=== PATIENT | male | born 1985 | race Caucasian/White ===

== ENCOUNTER 2017-11-24 23:26 | Emergency (ER) | payer MEDICARE, MEDICAID ==
[2017-11-25] LABS: #Basophils 0.1 thou/uL (0.0-0.2); #Eosinphils 0.1 thou/uL (0.0-0.7); #Lymphocytes 3.9 thou/uL (1.20-3.40); #Monocytes 0.7 thou/uL (0.11-0.59); %Basophils 0.8 % (0.0-1.0); %Eosinophils 1.1 % (0.0-10.0); %Lymphocytes 44.4 % (21.0-51.0); %Monocytes 8.2 % (0.0-10.0); %Neutrophils 45.5 % (42.0-75.0); Hemoglobin 16.8 g/dL (14.0-18.0); Mean Corpuscular Hemoglobin 34.2 pg (27.0-31.0); Mean Corpuscular Volume 97.7 fl (80.0-94.0); Mean Platelet Volume 7.4 fL (7.4-10.4); Platelet Count 205 thou/uL (130-400); RBC Distribution Width 11.5 % (11.5-14.5); Red Blood Cell (RBC) Count 4.91 mill/uL (4.70-6.10); White Blood Cell (WBC) Count 8.8 thou/uL (4.8-10.8)
[2017-11-25 00:06] LABS: Amphetamine Not Detected (NotDetected); Barbiturates Screen Not Detected (NotDetected); Benzodiazepine Screen Not Detected (NotDetected); Cocaine Metabolite Screen Not Detected (NotDetected); Medtox Control Line Valid? VALID (VALID); Medtox Reader # READER 4; Methadone Not Detected (NotDetected); Methamphetamine Not Detected (NotDetected); Opiate Screen Not Detected (NotDetected); Oxycodone Screen Not Detected (NotDetected); Phencyclidine (PCP) Not Detected (NotDetected); THC/Cannabinoid Screen Not Detected (NotDetected); Tricyclic Screen Not Detected (NotDetected)
[2017-11-25 00:26] LABS: ALT (SGPT) 12 U/L (8-55); AST (SGOT) 20 U/L (5-34); Acetaminophen Less than 6.0 mcg/mL (10.0-30.0); Albumin 4.9 g/dL (3.5-5.0); Alcohol Less than 10 mg/dL (Less than 10); Alkaline Phosphatase 82 U/L (40-150); Anion Gap 17 mmol/L (10-20); BUN (Urea Nitrogen) 19 mg/dL (8.9-20.6); CK (CPK) 183 U/L (30-200); Calc. Creatinine Clearance 0 mL/min (70-130); Calcium 10.3 mg/dL (7.8-10.44); Carbon Dioxide 25 mmol/L (22-29); Chloride 97 mmol/L (98-107); Estimated GFR-MDRD Greater than 90; Globulin 3.2 g/dL (2.4-3.5); Glucose 92 mg/dL (70-105); Potassium 4.2 mmol/L (3.5-5.1); Protein, Total 8.1 g/dL (6.0-8.3); Salicylate Less than 8.0 mg/dL (15.0-30.0); Sodium 135 mmol/L (136-145)
[2017-11-25 01:00] LABS: Bilirubin Negative (Negative); Blood, Urine Negative (Negative); Clarity CLEAR (Clear); Glucose, Urine (Dipstick) Negative (Negative); Leukocyte Negative (Negative); Nitrite Negative (Negative); Protein, Urine (Dipstick) Negative (Neg-Trace); Specific Gravity, Urine 1.009 (1.002-1.036); Urobilinogen 0.2 mg/dL (0.2-1.0)
[2017-11-25] MEDS ORDERED: Nicotine 14 MG PATCH TOP SCH (07:45)
[2017-11-25] MEDS ORDERED: Haloperidol Lactate 5 MG/ML VIAL ONE ×2 (18:41→19:17)
[2017-11-25] MEDS ORDERED: diphenhydrAMINE 50 MG/ML VIAL ONE (18:41)
[2017-11-25] MEDS ORDERED: Lorazepam 2 MG/ML VIAL ONE (18:41)
== END 2017-11-25 20:17 ==
LOC: ERS 23:26
DX: F30.9 Manic episode, unspecified (principal); F31.9 Bipolar disorder, unspecified; F17.210 Nicotine dependence, cigarettes, uncomplicated
CPT/HCPCS: 80306; 80307; 81003; 82550; 96372; 99285; J2997; 36415; 80053; 84443; 85025; J1200; J1630; J2060

== ENCOUNTER 2017-12-27 21:00 | Emergency (ER) | payer MEDICARE, MEDICAID ==
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
[2017-12-28] MEDS ORDERED: Adacel (T-DAP) 0.5 ML VIAL ONE (00:49)
== END 2017-12-28 01:05 | disposition home or self-care (01) ==
LOC: ERS 21:00
DX: S50.811A Abrasion of right forearm, initial encounter (principal); S70.211A Abrasion, right hip, initial encounter; F31.9 Bipolar disorder, unspecified; F17.210 Nicotine dependence, cigarettes, uncomplicated; Z23 Encounter for immunization; W01.0XXA Fall on same level from slipping, tripping and stumbling without subsequent striking against object, initial encounter; Y93.02 Activity, running; Y92.488 Other paved roadways as the place of occurrence of the external cause
CPT/HCPCS: 90471; 90715

== ENCOUNTER 2018-01-05 04:02 | Emergency (ER) | payer MEDICARE, MEDICAID ==
[2018-01-05 04:53] LABS: #Basophils 0.1 thou/uL (0.0-0.2); #Eosinphils 0.2 thou/uL (0.0-0.7); #Lymphocytes 2.6 thou/uL (1.20-3.40); #Monocytes 0.5 thou/uL (0.11-0.59); #Neutrophils 2.3 thou/uL (1.40-6.50); %Basophils 1.4 % (0.0-1.0); %Eosinophils 3.3 % (0.0-10.0); %Neutrophils 41.4 % (42.0-75.0); Mean Corpuscular HGB CONC 31.9 g/dL (32.0-36.0); Mean Corpuscular Hemoglobin 31.9 pg (27.0-31.0); Mean Corpuscular Volume 99.9 fL (78.0-98.0); Mean Platelet Volume 7.7 fL (7.4-10.4); Platelet Count 189 thou/uL (130-400); RBC Distribution Width 11.6 % (11.5-14.5); White Blood Cell (WBC) Count 5.6 thou/uL (4.8-10.8)
[2018-01-05 05:22] LABS: ALT (SGPT) 15 U/L (8-55); AST (SGOT) 19 U/L (5-34); Albumin 4.1 g/dL (3.5-5.0); Alkaline Phosphatase 57 U/L (40-150); Anion Gap 10 mmol/L (10-20); BUN (Urea Nitrogen) 11 mg/dL (8.9-20.6); Bilirubin, Total 0.4 mg/dL (0.2-1.2); CK (CPK) 172 U/L (30-200); Calc. Creatinine Clearance 0 mL/min (70-130); Calcium 9.4 mg/dL (7.8-10.44); Carbon Dioxide 25 mmol/L (22-29); Chloride 106 mmol/L (98-107); Estimated GFR-MDRD Greater than 90; Globulin 2.8 g/dL (2.4-3.5); Glucose 92 mg/dL (70-105); Protein, Total 6.9 g/dL (6.0-8.3); Sodium 137 mmol/L (136-145)
--- NOTE | 2018-01-08 00:38 | EKG ---
Test Reason : Blood Pressure : / mmHG Vent. Rate : 063 BPM Atrial Rate : 063 BPM P-R Int : 132 ms QRS Dur : 108 ms QT Int : 412 ms P-R-T Axes : -09 082 060 degrees QTc Int : 421 ms Normal sinus rhythm with sinus arrhythmia Incomplete right bundle branch block Borderline ECG Confirmed by ARUNA PAULA ([id number]), content editor CRISTIAN MCBRIDE ([id number]) on 01/08/2018 12:37:42 AM Referred By: Confirmed By:ARUNA PAULA
== END 2018-01-05 05:58 | disposition home or self-care (01) ==
LOC: ERS 04:02
DX: E86.0 Dehydration (principal); L55.0 Sunburn of first degree; F31.9 Bipolar disorder, unspecified; F43.10 Post-traumatic stress disorder, unspecified
CPT/HCPCS: 80053; 82550; 83605; 85025; 93005; 96360

== ENCOUNTER 2019-05-12 04:21 | Emergency (ER) | payer MEDICARE, MEDICAID ==
[2019-05-12] MEDS ORDERED: Ibuprofen 800 MG TAB ONE (04:30)
== END 2019-05-12 04:31 | disposition home or self-care (01) ==
LOC: ERS 04:21
DX: M79.10 Myalgia, unspecified site (principal); M19.90 Unspecified osteoarthritis, unspecified site; F31.9 Bipolar disorder, unspecified; F43.10 Post-traumatic stress disorder, unspecified; F17.210 Nicotine dependence, cigarettes, uncomplicated
CPT/HCPCS: 99284

== ENCOUNTER 2019-09-04 11:37 | Emergency (ER) | payer MEDICARE, MEDICAID ==
[2019-09-04 12:47] LABS: #Basophils 0.1 thou/uL (0.0-0.2); #Eosinphils 0.2 thou/uL (0.0-0.7); #Lymphocytes 2.9 thou/uL (1.20-3.40); #Monocytes 0.6 thou/uL (0.11-0.59); #Neutrophils 3.5 thou/uL (1.40-6.50); %Basophils 1.2 % (0.0-1.0); %Eosinophils 3.3 % (0.0-10.0); %Lymphocytes 39.4 % (21.0-51.0); %Monocytes 8.4 % (0.0-10.0); %Neutrophils 47.7 % (42.0-75.0); Hemoglobin 14.6 g/dL (14.0-18.0); Mean Corpuscular HGB CONC 34.1 g/dL (32.0-36.0); Mean Corpuscular Hemoglobin 33.9 pg (27.0-31.0); Mean Corpuscular Volume 99.4 fL (78.0-98.0); Mean Platelet Volume 8.3 fL (7.4-10.4); Platelet Count 221 thou/uL (130-400); RBC Distribution Width 11.8 % (11.5-14.5); Red Blood Cell (RBC) Count 4.32 mill/uL (4.70-6.10); White Blood Cell (WBC) Count 7.3 thou/uL (4.8-10.8)
[2019-09-04 13:02] LABS: ALT (SGPT) 12 U/L (8-55); AST (SGOT) 24 U/L (5-34); Albumin 4.5 g/dL (3.5-5.0); Alkaline Phosphatase 70 U/L (40-110); Anion Gap 14 mmol/L (10-20); BUN (Urea Nitrogen) 8 mg/dL (8.9-20.6); Bilirubin, Total 0.5 mg/dL (0.2-1.2); Calc. Creatinine Clearance 0 mL/min (70-130); Calcium 9.9 mg/dL (7.8-10.44); Carbon Dioxide 24 mmol/L (22-29); Chloride 103 mmol/L (98-107); Estimated GFR-MDRD Greater than 90; Globulin 2.8 g/dL (2.4-3.5); Glucose 98 mg/dL (70-105); Protein, Total 7.3 g/dL (6.0-8.3); Sodium 137 mmol/L (136-145)
[2019-09-04 13:26] LABS: Acetaminophen Less than 6.0 mcg/mL (10.0-30.0); Alcohol Less than 10 mg/dL (Less than 10); Salicylate Less than 8.0 mg/dL (15.0-30.0)
[2019-09-04 16:08] LABS: Bilirubin Negative (Negative); Blood, Urine Negative (Negative); Clarity Clear (Clear); Glucose, Urine (Dipstick) Normal (Negative); Leukocyte Negative Leu/uL (Negative); Nitrite Negative (Negative); Protein, Urine (Dipstick) 10 mg/dL (Neg-Trace)
[2019-09-04 16:22] LABS: Amphetamine Not Detected (NotDetected); Barbiturates Screen Not Detected (NotDetected); Benzodiazepine Screen Not Detected (NotDetected); Cocaine Metabolite Screen Not Detected (NotDetected); Medtox Control Line Valid? VALID (VALID); Medtox Reader # READER 1; Methadone Not Detected (NotDetected); Methamphetamine Not Detected (NotDetected); Opiate Screen Not Detected (NotDetected); Oxycodone Screen Not Detected (NotDetected); Phencyclidine (PCP) Not Detected (NotDetected); THC/Cannabinoid Screen Not Detected (NotDetected); Tricyclic Screen Not Detected (NotDetected)
== END 2019-09-04 18:15 | disposition home or self-care (01) ==
LOC: ERS 11:37
DX: F41.9 Anxiety disorder, unspecified (principal); F31.9 Bipolar disorder, unspecified; F43.10 Post-traumatic stress disorder, unspecified; F17.210 Nicotine dependence, cigarettes, uncomplicated; Z76.0 Encounter for issue of repeat prescription
CPT/HCPCS: 36415; 80053; 80306; 80307; 81003; 82550; 85025; 93005

== ENCOUNTER 2019-09-07 20:57 | Emergency (ER) | payer MEDICARE, MEDICAID ==
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
== END 2019-09-07 21:37 | disposition home or self-care (01) ==
LOC: ERS 20:57
DX: B35.6 Tinea cruris (principal); M79.671 Pain in right foot; F31.9 Bipolar disorder, unspecified; F17.210 Nicotine dependence, cigarettes, uncomplicated

== ENCOUNTER 2019-09-08 19:23 | Emergency (ER) | payer MEDICARE, MEDICAID ==
[2019-09-08 20:01] LABS: #Basophils 0.1 thou/uL (0.0-0.2); #Eosinphils 0.2 thou/uL (0.0-0.7); #Lymphocytes 2.3 thou/uL (1.20-3.40); #Monocytes 0.3 thou/uL (0.11-0.59); #Neutrophils 4.8 thou/uL (1.40-6.50); %Basophils 1.1 % (0.0-1.0); %Eosinophils 2.7 % (0.0-10.0); %Lymphocytes 29.7 % (21.0-51.0); %Neutrophils 62.4 % (42.0-75.0); Hemoglobin 14.9 g/dL (14.0-18.0); Mean Corpuscular HGB CONC 33.5 g/dL (32.0-36.0); Mean Corpuscular Hemoglobin 33.6 pg (27.0-31.0); Mean Platelet Volume 9.1 fL (7.4-10.4); Platelet Count 176 thou/uL (130-400); RBC Distribution Width 11.9 % (11.5-14.5); Red Blood Cell (RBC) Count 4.44 mill/uL (4.70-6.10); White Blood Cell (WBC) Count 7.6 thou/uL (4.8-10.8)
[2019-09-08 20:08] LABS: Bilirubin Negative (Negative); Blood, Urine Negative (Negative); Clarity Clear (Clear); Glucose, Urine (Dipstick) Normal (Negative); Leukocyte Negative Leu/uL (Negative); Nitrite Negative (Negative); Protein, Urine (Dipstick) 20 mg/dL (Neg-Trace); Urobilinogen 6 mg/dL (Less than 2)
[2019-09-08 20:20] LABS: Amphetamine Not Detected (NotDetected); Barbiturates Screen Not Detected (NotDetected); Benzodiazepine Screen Not Detected (NotDetected); Cocaine Metabolite Screen Not Detected (NotDetected); Medtox Control Line Valid? VALID (VALID); Medtox Reader # READER 4; Methadone Not Detected (NotDetected); Methamphetamine Not Detected (NotDetected); Opiate Screen Not Detected (NotDetected); Oxycodone Screen Not Detected (NotDetected); Phencyclidine (PCP) Not Detected (NotDetected); THC/Cannabinoid Screen Not Detected (NotDetected); Tricyclic Screen Not Detected (NotDetected)
[2019-09-08 20:21] LABS: ALT (SGPT) 14 U/L (8-55); AST (SGOT) 23 U/L (5-34); Albumin 4.5 g/dL (3.5-5.0); Alcohol Less than 10 mg/dL (Less than 10); Alkaline Phosphatase 71 U/L (40-110); Anion Gap 16 mmol/L (10-20); BUN (Urea Nitrogen) 9 mg/dL (8.9-20.6); Bilirubin, Total 0.3 mg/dL (0.2-1.2); CK (CPK) 426 U/L (30-200); Calc. Creatinine Clearance 0 mL/min (70-130); Calcium 8.8 mg/dL (7.8-10.44); Carbon Dioxide 23 mmol/L (22-29); Chloride 103 mmol/L (98-107); Estimated GFR-MDRD Greater than 90; Globulin 2.6 g/dL (2.4-3.5); Glucose 98 mg/dL (70-105); Potassium 3.6 mmol/L (3.5-5.1); Protein, Total 7.1 g/dL (6.0-8.3); Sodium 138 mmol/L (136-145)
[2019-09-08 20:27] LABS: Acetaminophen Less than 6.0 mcg/mL (10.0-30.0); Alcohol Less than 10 mg/dL (Less than 10); Salicylate Less than 8.0 mg/dL (15.0-30.0)
--- NOTE | 2019-09-13 10:54 | EKG ---
Test Reason : Blood Pressure : / mmHG Vent. Rate : 067 BPM Atrial Rate : 067 BPM P-R Int : 128 ms QRS Dur : 108 ms QT Int : 402 ms P-R-T Axes : -03 077 051 degrees QTc Int : 424 ms Normal sinus rhythm Incomplete right bundle branch block Borderline ECG Confirmed by ROYCE MAYO D.O. ([id number]), purchase request editor CRISTIAN MCBRIDE ([id number]) on 09/13/2019 10:53:39 AM Referred By: Confirmed By:ROYCE MAYO D.O.
== END 2019-09-09 02:12 ==
LOC: ERS 19:23
DX: F29 Unspecified psychosis not due to a substance or known physiological condition (principal); F31.9 Bipolar disorder, unspecified; M19.90 Unspecified osteoarthritis, unspecified site; F17.210 Nicotine dependence, cigarettes, uncomplicated; Z79.899 Other long term (current) drug therapy
CPT/HCPCS: 36415; 80053; 80178; 80306; 80307; 81003; 82550; 84443; 85025; 93005

== ENCOUNTER 2019-10-02 16:45 | Emergency (ER) | payer MEDICARE, MEDICAID ==
[2019-10-02 17:22] LABS: #Basophils 0.1 thou/uL (0.0-0.2); #Eosinphils 0.1 thou/uL (0.0-0.7); #Monocytes 0.4 thou/uL (0.11-0.59); #Neutrophils 3.2 thou/uL (1.40-6.50); %Eosinophils 1.1 % (0.0-10.0); %Lymphocytes 43.9 % (21.0-51.0); %Monocytes 5.9 % (0.0-10.0); %Neutrophils 47.2 % (42.0-75.0); Hemoglobin 15.9 g/dL (14.0-18.0); Mean Corpuscular HGB CONC 33.4 g/dL (32.0-36.0); Mean Corpuscular Hemoglobin 33.3 pg (27.0-31.0); Mean Corpuscular Volume 99.5 fL (78.0-98.0); Mean Platelet Volume 8.7 fL (7.4-10.4); Platelet Count 215 thou/uL (130-400); RBC Distribution Width 11.8 % (11.5-14.5); Red Blood Cell (RBC) Count 4.78 mill/uL (4.70-6.10); White Blood Cell (WBC) Count 6.7 thou/uL (4.8-10.8)
[2019-10-02 17:37] LABS: Bilirubin Negative (Negative); Blood, Urine Negative (Negative); Clarity Clear (Clear); Glucose, Urine (Dipstick) Normal (Negative); Leukocyte Negative Leu/uL (Negative); Nitrite Negative (Negative); Protein, Urine (Dipstick) Negative (Neg-Trace); Urobilinogen Normal mg/dL (Less than 2)
[2019-10-02 17:47] LABS: ALT (SGPT) 13 U/L (8-55); AST (SGOT) 21 U/L (5-34); Albumin 4.6 g/dL (3.5-5.0); Alkaline Phosphatase 59 U/L (40-110); Anion Gap 17 mmol/L (10-20); BUN (Urea Nitrogen) 11 mg/dL (8.9-20.6); Bilirubin, Total 0.4 mg/dL (0.2-1.2); Calc. Creatinine Clearance 0 mL/min (70-130); Calcium 9.5 mg/dL (7.8-10.44); Carbon Dioxide 22 mmol/L (22-29); Chloride 107 mmol/L (98-107); Estimated GFR-MDRD Greater than 90; Globulin 2.9 g/dL (2.4-3.5); Glucose 81 mg/dL (70-105); Potassium 3.7 mmol/L (3.5-5.1); Protein, Total 7.5 g/dL (6.0-8.3); Sodium 142 mmol/L (136-145)
[2019-10-02 17:48] LABS: Amphetamine Not Detected (NotDetected); Barbiturates Screen Not Detected (NotDetected); Benzodiazepine Screen Not Detected (NotDetected); Cocaine Metabolite Screen Not Detected (NotDetected); Medtox Control Line Valid? VALID (VALID); Medtox Reader # READER 4; Methadone Not Detected (NotDetected); Methamphetamine Not Detected (NotDetected); Opiate Screen Not Detected (NotDetected); Oxycodone Screen Not Detected (NotDetected); Phencyclidine (PCP) Not Detected (NotDetected); THC/Cannabinoid Screen Not Detected (NotDetected); Tricyclic Screen Not Detected (NotDetected)
[2019-10-02 17:48] LABS: Acetaminophen Less than 6.0 mcg/mL (10.0-30.0); Alcohol 201 mg/dL (Less than 10); CK (CPK) 317 U/L (30-200); Salicylate Less than 8.0 mg/dL (15.0-30.0)
[2019-10-02] MEDS ORDERED: Haloperidol Lactate 5 MG/ML VIAL ONE (19:52)
== END 2019-10-02 20:41 ==
LOC: ERS 16:45
DX: F10.129 Alcohol abuse with intoxication, unspecified (principal); F31.9 Bipolar disorder, unspecified; F17.210 Nicotine dependence, cigarettes, uncomplicated; F43.10 Post-traumatic stress disorder, unspecified
CPT/HCPCS: 80053; 80306; 80307; 81003; 82550; 84443; 85025; 93005; 96360; 96372; J1630

== ENCOUNTER 2019-10-19 02:16 | Emergency (ER) | payer MEDICARE, MEDICAID | END 2019-10-19 02:33 | disposition home or self-care (01) | LOC: ERS 02:16 | DX: M79.672 Pain in left foot (principal); M79.671 Pain in right foot; F31.9 Bipolar disorder, unspecified; F43.10 Post-traumatic stress disorder, unspecified; F17.210 Nicotine dependence, cigarettes, uncomplicated | CPT/HCPCS: 99281 ==

== ENCOUNTER 2019-11-06 15:18 | Emergency (ER) | payer MEDICARE, MEDICAID ==
--- NOTE | 2019-11-09 15:29 | EKG ---
Test Reason : Blood Pressure : / mmHG Vent. Rate : 072 BPM Atrial Rate : 072 BPM P-R Int : 130 ms QRS Dur : 102 ms QT Int : 376 ms P-R-T Axes : 000 074 045 degrees QTc Int : 411 ms Normal sinus rhythm Incomplete right bundle branch block Borderline ECG Confirmed by ROYCE MAYO DO ([id number]), electronic news gathering editor CRISTIAN MCBRIDE ([id number]) on 11/09/2019 3:29:20 PM Referred By: Confirmed By:ROYCE MAYO DO
== END 2019-11-06 16:51 | disposition home or self-care (01) ==
LOC: ERS 15:18
DX: E86.0 Dehydration (principal); F31.9 Bipolar disorder, unspecified; F43.10 Post-traumatic stress disorder, unspecified; F17.210 Nicotine dependence, cigarettes, uncomplicated
CPT/HCPCS: 93005

== ENCOUNTER 2019-11-25 13:49 | Emergency (ER) | payer MEDICARE, MEDICAID | END 2019-11-25 14:16 | LOC: ERS 13:49 | DX: S00.83XA Contusion of other part of head, initial encounter (principal); S00.31XA Abrasion of nose, initial encounter; F17.210 Nicotine dependence, cigarettes, uncomplicated; F31.9 Bipolar disorder, unspecified; F43.10 Post-traumatic stress disorder, unspecified; Y04.0XXA Assault by unarmed brawl or fight, initial encounter | CPT/HCPCS: 99283 ==

== ENCOUNTER 2020-06-29 15:30 | Emergency (ER) | payer MEDICARE, MEDICAID ==
[2020-06-29] MEDS ORDERED: Boostrix 0.5 ML (Tdap) VIAL ONE (15:54)
== END 2020-06-29 16:17 | disposition home or self-care (01) ==
LOC: ERS 15:30
DX: T69.1XXA Chilblains, initial encounter (principal); F17.210 Nicotine dependence, cigarettes, uncomplicated
CPT/HCPCS: 90471; 90715; 99283

== ENCOUNTER 2020-06-30 10:31 | Emergency (ER) | payer MEDICARE, MEDICAID ==
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
[2020-06-30] MEDS ORDERED: Ibuprofen 200 MG TAB ONE (12:33)
== END 2020-06-30 14:36 | disposition home or self-care (01) ==
LOC: ERS 10:31
DX: S93.401A Sprain of unspecified ligament of right ankle, initial encounter (principal); Z59.0 Homelessness; F17.210 Nicotine dependence, cigarettes, uncomplicated

== ENCOUNTER 2020-07-14 05:03 | Emergency (ER) | payer MEDICARE, MEDICAID | END 2020-07-14 05:15 | LOC: ERS 05:03 | DX: M25.571 Pain in right ankle and joints of right foot (principal); F17.210 Nicotine dependence, cigarettes, uncomplicated; X58.XXXA Exposure to other specified factors, initial encounter; Y93.41 Activity, dancing | CPT/HCPCS: 99283 ==

== ENCOUNTER 2020-08-09 14:05 | Emergency (ER) | payer MEDICAID, MEDICARE, OTHER ==
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
== END 2020-08-09 17:37 ==
LOC: ERS 14:05
DX: S02.2XXA Fracture of nasal bones, initial encounter for closed fracture (principal); S01.412A Laceration without foreign body of left cheek and temporomandibular area, initial encounter; F17.210 Nicotine dependence, cigarettes, uncomplicated; Y04.8XXA Assault by other bodily force, initial encounter
CPT/HCPCS: 70450; 70486

== ENCOUNTER 2021-03-01 01:43 | Emergency (ER) | payer MEDICARE, MEDICAID ==
[2021-03-01 02:48] LABS: Bacteria/HPF None Seen HPF (None Seen); Bilirubin Negative (Negative); Blood, Urine Negative (Negative); Clarity Turbid (Clear); Glucose, Urine (Dipstick) Normal (Negative); Ketone, Urine Trace mg/dL (Negative); Leukocyte Negative Leu/uL (Negative); Nitrite Negative (Negative); Protein, Urine (Dipstick) 30 mg/dL (Neg-Trace); RBC/HPF None Seen HPF (0-3); Specific Gravity, Urine 1.032 (1.002-1.036); Squamous Epithelial 0-3 HPF (0-3); Urobilinogen 6 mg/dL (Less than 2); WBC/HPF 0-3 HPF (0-3); pH, Urine 7.5 (5.0-9.0)
== END 2021-03-01 06:00 | disposition home or self-care (01) ==
LOC: ERS 01:43
DX: E86.0 Dehydration (principal); F17.290 Nicotine dependence, other tobacco product, uncomplicated
CPT/HCPCS: 81003; 81015; 93005

== ENCOUNTER 2021-12-12 23:02 | Emergency (ER) | payer MEDICARE, MEDICAID | END 2021-12-13 00:20 | disposition home or self-care (01) | LOC: ERS 23:02 | DX: T67.5XXA Heat exhaustion, unspecified, initial encounter (principal); F17.210 Nicotine dependence, cigarettes, uncomplicated | CPT/HCPCS: 99284 ==

== ENCOUNTER 2022-07-01 04:36 | Emergency (ER) | payer MEDICARE, MEDICAID ==
[2022-07-01] MEDS ORDERED: Ketorolac Tromethamine 30 MG/ML VIAL ONE (05:35)
== END 2022-07-01 06:10 | disposition home or self-care (01) ==
LOC: ERS 04:36
DX: S93.402A Sprain of unspecified ligament of left ankle, initial encounter (principal); F17.210 Nicotine dependence, cigarettes, uncomplicated
CPT/HCPCS: 96372; J1885

== ENCOUNTER 2022-07-04 00:13 | Emergency (ER) | payer MEDICARE, MEDICAID | END 2022-07-04 06:43 | disposition home or self-care (01) | LOC: ERS 00:13 | DX: S93.402A Sprain of unspecified ligament of left ankle, initial encounter (principal); F17.290 Nicotine dependence, other tobacco product, uncomplicated ==

== ENCOUNTER 2023-11-07 23:02 | Emergency (ER) | payer SELFPAY | END 2023-11-08 00:51 | disposition left against medical advice (07) | LOC: ERS 23:02 | DX: Z53.21 Procedure and treatment not carried out due to patient leaving prior to being seen by health care provider (principal) ==